=== PATIENT | female | born 1955 | race Caucasian/White ===

== ENCOUNTER 2017-05-25 06:19 | Observation (INO) | payer OTHER ==
[~2017-05-25] VITALS: Ht 175.3 cm; Wt 77.3 kg
[2017-05-25] MEDS ORDERED: SODIUM CHLORIDE 0.9% 1,000 ML IV SCH (06:46)
[2017-05-25 06:51] VITALS: BP 144/72
[2017-05-25] MEDS ORDERED: OMEG1CAP23 PO (06:58)
[2017-05-25] MEDS ORDERED: METO25TA35 PO (06:58)
[2017-05-25] MEDS ORDERED: CALC-112 PO (06:58)
[2017-05-25] MEDS ORDERED: ASCO10004 PO (06:58)
[2017-05-25] MEDS ORDERED: ASPI-496 PO (06:58)
[2017-05-25] MEDS ORDERED: LIDOCAINE 2%, 20ML ONE (07:32)
[2017-05-25] MEDS ORDERED: MIDAZOLAM 1 MG/ML, 5ML ONE (07:32)
[2017-05-25] MEDS ORDERED: ISOPROTERENOL 0.2MG/ML, 5ML ONE (07:32)
[2017-05-25] MEDS ORDERED: FENTANYL PF 100 MCG/2ML ONE (07:32)
[2017-05-25] MEDS ORDERED: ZOLPIDEM 5MG TABLET PO PRN (11:00)
[2017-05-25] MEDS ORDERED: HYDROcodone/APAP 5/325 TABLET PO PRN (11:00)
[2017-05-25] MEDS ORDERED: CEFAZOLIN PMX 1GM/50ML 50 ML IVPB SCH (16:00)
[2017-05-25] MEDS ORDERED: CALCIUM/VITAMIN D3 250-125 TABLET PO SCH (21:00)
[2017-05-25] MEDS ORDERED: METOPROLOL TARTRATE 25 MG TABLET PO SCH (21:00)
[2017-05-25] MEDS ORDERED: SODIUM CHLORIDE FLUSH 10ML SYR IVF SCH (21:00)
[2017-05-26] MEDS ORDERED: OMEGA-3/FISH OIL CAPSULE PO SCH (09:00)
[2017-05-26] MEDS ORDERED: CALCIUM/VITAMIN D3 250-125 TABLET PO SCH (09:00)
[2017-05-26] MEDS ORDERED: ASCORBIC ACID 500 MG TABLET PO SCH (09:00)
[2017-05-26] MEDS ORDERED: ASPIRIN 81 MG TABLET EC PO SCH (09:00)
== END 2017-05-25 14:20 | disposition home or self-care (01) ==
LOC: CACL 06:19 → ORIP 10:44
PROVIDERS: ADMIT Internal Medicine Cardiovascular Disease; ATTEND Internal Medicine Cardiovascular Disease
DX: I49.3 Ventricular premature depolarization (principal); I42.9 Cardiomyopathy, unspecified
CPT/HCPCS: 93623; C1894; C2630; G0378; J3490; J2250; J3010

== ENCOUNTER 2020-01-16 06:11 | Observation (INO) | payer MEDICARE, OTHER ==
[~2020-01-16] VITALS: Ht 175.3 cm; Wt 86.4 kg
[~2020-01-16 06:11] MED LIST: ASCO10004 PO; ASPI-496 PO; CALC-112 PO; METO25TA35 PO; OMEG1CAP23 PO
[2020-01-16] MEDS ORDERED: SODIUM CHLORIDE 0.9% 1,000 ML IV SCH (06:29)
[2020-01-16] MEDS ORDERED: MULT-658 PO (06:40)
[2020-01-16] MEDS ORDERED: MAGN400T36 PO (06:40)
[2020-01-16] MEDS ORDERED: FLEC100T PO (06:40)
[2020-01-16] MEDS ORDERED: GLUC-149 PO (06:40)
[2020-01-16 06:43] VITALS: BP 148/63
[2020-01-16 07:11] LABS: MEAN CORPUSCULAR HEMOGLOBIN 33.1 pg (27.0-34.8); MEAN CORPUSCULAR HGB CONC 33.4 g/dL (32.4-35.8); MEAN CORPUSCULAR VOLUME 99.2 fL (80-100); MEAN PLATELET VOLUME 8.7 fL (7.4-10.4); PLATELET COUNT 251 x10^3/uL (130-400); RED BLOOD COUNT 4.12 x10^6/uL (3.82-5.3); RED CELL DISTRIBUTION WIDTH 13.9 % (9.6-15.2)
[2020-01-16 07:12] LABS: ANION GAP 6 mmol/L (5-15); CHLORIDE 111 mmol/L (98-107); CREATININE 0.86 mg/dL (0.55-1.02)
[2020-01-16] MEDS ORDERED: FENTANYL PF 100 MCG/2ML ONE (07:50)
[2020-01-16] MEDS ORDERED: MIDAZOLAM 1 MG/ML, 2ML ONE (07:50)
[2020-01-16] MEDS ORDERED: ISOPROTERENOL 0.2MG/ML, 5ML ONE (07:50)
[2020-01-16] MEDS ORDERED: LIDOCAINE 1%, 20ML ONE ×2 (07:50→09:19)
[2020-01-16 07:58] LABS: MD YES
[2020-01-16 08:05] LABS: BANDS%(MANUAL) 4 % (0-7); BASOS#(MANUAL) 0.03 x10^3/uL (0-0.1); BASOS% (MANUAL) 1 % (0-1); MONOS#(MANUAL) 0.43 x10^3/uL (0.3-2.7); MONOS% (MANUAL) 17 % (2-9)
[2020-01-16 08:06] LABS: EOS#(MANUAL) 0.13 x10^3/uL (0.0-0.4); EOS% (MANUAL) 5 % (1-7); SEG#(MANUAL) 0.28 x10^3/uL (1.8-6.8); SEGS% (MANUAL) 11 % (42-75)
[2020-01-16 08:07] LABS: <PLATELET ESTIMATE> ADEQUATE; <PLT MORPHOLOGY> NORMAL PLT MORPH; <RBC MORPHOLOGY> NORMAL; LYMPH#(MANUAL) 1.55 x10^3/uL (1-3.4); LYMPHS% (MANUAL) 62 % (22-44)
[2020-01-16] MEDS ORDERED: HEPARIN 1,000 UNITS/ML, 10ML ONE ×2 (09:27→09:59)
[2020-01-16] MEDS ORDERED: ACETAMINOPHEN 325 MG TABLET PO PRN (12:00)
[2020-01-16] MEDS ORDERED: ZOLPIDEM 5MG TABLET PO PRN (12:00)
[2020-01-16 13:13] VITALS: BP 128/77
[2020-01-16] MEDS: CALCIUM/VITAMIN D3 250-125 TABLET PO SCH ×2 (13:26→20:10)
[2020-01-16] MEDS: CLOPIDOGREL 75 MG TABLET PO SCH (13:46)
[2020-01-16 19:03] VITALS: BP 122/70
[2020-01-16] MEDS: METOPROLOL TARTRATE 25 MG TAB PO SCH (20:10)
[2020-01-17 01:17] VITALS: BP 126/72
[2020-01-17 05:14] LABS: MEAN CORPUSCULAR HEMOGLOBIN 33.4 pg (27.0-34.8); MEAN CORPUSCULAR HGB CONC 34.1 g/dL (32.4-35.8); PLATELET COUNT 208 x10^3/uL (130-400); RED BLOOD COUNT 3.51 x10^6/uL (3.82-5.3); RED CELL DISTRIBUTION WIDTH 14.1 % (9.6-15.2)
[2020-01-17 05:44] LABS: MD YES
[2020-01-17 05:47] LABS: BASOS#(MANUAL) 0.03 x10^3/uL (0-0.1); BASOS% (MANUAL) 1 % (0-1); EOS#(MANUAL) 0.25 x10^3/uL (0.0-0.4); EOS% (MANUAL) 10 % (1-7); LYMPH#(MANUAL) 1.05 x10^3/uL (1-3.4); LYMPHS% (MANUAL) 42 % (22-44); MONOS#(MANUAL) 0.55 x10^3/uL (0.3-2.7); MONOS% (MANUAL) 22 % (2-9); SEG#(MANUAL) 0.63 x10^3/uL (1.8-6.8); SEGS% (MANUAL) 25 % (42-75)
[2020-01-17 05:48] LABS: <PLATELET ESTIMATE> ADEQUATE; <PLT MORPHOLOGY> NORMAL PLT MORPH; <RBC MORPHOLOGY> NORMAL
[2020-01-17 06:33] VITALS: BP 129/71
[2020-01-17] MEDS ORDERED: MULTIVITAMIN 1 TABLET PO SCH (09:00)
[2020-01-17] MEDS ORDERED: ASPIRIN 81 MG TABLET EC PO SCH (09:00)
[2020-01-17] MEDS ORDERED: ASCORBIC ACID 500 MG TABLET PO SCH (09:00)
[2020-01-17] MEDS ORDERED: MAGNESIUM OXIDE 400 MG TABLET PO SCH (09:00)
[2020-01-17] MEDS ORDERED: TEMPLATE NON-FORMULARY MED. (Glucosam/Chond/Hyalu/Cf Borate (Move Free Joint Health Tablet HOMEMEDPO SCH (09:00)
[2020-01-17] MEDS: CALCIUM/VITAMIN D3 250-125 TABLET PO SCH (09:20)
[2020-01-17] MEDS: CLOPIDOGREL 75 MG TABLET PO SCH (09:21)
[2020-01-17] MEDS: METOPROLOL TARTRATE 25 MG TAB PO SCH (09:21)
[2020-01-17] MEDS ORDERED: ACET325T26 PO (10:44)
[2020-01-17] MEDS ORDERED: CLOP75TA PO (10:44)
== END 2020-01-17 13:58 | disposition home or self-care (01) ==
LOC: CACL 06:11 → 5SO 10:57 → INTOOBSV 11:43 → 5SO 11:43 → CACL 12:01
PROVIDERS: ADMIT Internal Medicine Cardiovascular Disease; ATTEND Internal Medicine Cardiovascular Disease
DX: I49.3 Ventricular premature depolarization (principal); F10.10 Alcohol abuse, uncomplicated; Z79.899 Other long term (current) drug therapy
CPT/HCPCS: 36415; 71046; 80048; 85025; 85347; 93306; 93356; 93454; 93654; 99156; 99157; C1732; C1760; C1769; C1894; C2630; G0378; J1644; J2250; J3010; J3490

== ENCOUNTER 2020-02-01 09:41 | Outpatient (CLI) | payer MEDICARE, OTHER ==
[~2020-02-01 09:41] MED LIST changes: +ACET325T26 PO; +CLOP75TA PO; +FLEC100T PO; +GLUC-149 PO; +MAGN400T36 PO; +MULT-658 PO
== END 2020-02-01 23:59 | disposition home or self-care (01) ==
LOC: CVU 09:41
PROVIDERS: ATTEND Internal Medicine Cardiovascular Disease
DX: I08.1 Rheumatic disorders of both mitral and tricuspid valves (principal); I42.9 Cardiomyopathy, unspecified
CPT/HCPCS: 93306

== ENCOUNTER 2020-03-30 07:25 | Day surgery (SDC) | payer MEDICARE, OTHER ==
[~2020-03-30] VITALS: Ht 175.3 cm; Wt 82.5 kg
[2020-03-30] MEDS ORDERED: SODIUM CHLORIDE 0.9% 1,000 ML IV SCH (08:10)
[2020-03-30 08:12] VITALS: BP 154/60
[2020-03-30 08:28] LABS: MEAN CORPUSCULAR HEMOGLOBIN 32.5 pg (27.0-34.8); MEAN CORPUSCULAR HGB CONC 32.8 g/dL (32.4-35.8); MEAN CORPUSCULAR VOLUME 99.3 fL (80-100); MEAN PLATELET VOLUME 8.6 fL (7.4-10.4); PLATELET COUNT 277 x10^3/uL (130-400); RED BLOOD COUNT 4.58 x10^6/uL (3.82-5.3); RED CELL DISTRIBUTION WIDTH 13.2 % (9.6-15.2)
[2020-03-30 08:35] LABS: ANION GAP 6 mmol/L (5-15); CALCIUM 10.1 mg/dL (8.5-10.1); CHLORIDE 111 mmol/L (98-107)
[2020-03-30 08:53] LABS: MD YES
[2020-03-30 08:56] LABS: <PLATELET ESTIMATE> ADEQUATE; <PLT MORPHOLOGY> NORMAL PLT MORPH; <RBC MORPHOLOGY> NORMAL; BAND#(MANUAL) 0.06 x10^3/uL; BANDS%(MANUAL) 2 % (0-7); BASOS#(MANUAL) 0.06 x10^3/uL (0-0.1); BASOS% (MANUAL) 2 % (0-1); EOS#(MANUAL) 0.06 x10^3/uL (0.0-0.4); EOS% (MANUAL) 2 % (1-7); LYMPH#(MANUAL) 1.29 x10^3/uL (1-3.4); LYMPHS% (MANUAL) 46 % (22-44); MONOS#(MANUAL) 0.25 x10^3/uL (0.3-2.7); MONOS% (MANUAL) 9 % (2-9); REACTIVE LYMPHS # (MANUAL) 0.03 x10^3/uL (0-0); REACTIVE LYMPHS % (MANUAL) 1 % (0-0); SEG#(MANUAL) 1.06 x10^3/uL (1.8-6.8); SEGS% (MANUAL) 38 % (42-75)
[2020-03-30] MEDS ORDERED: HEPARIN 1,000 UNITS/ML, 10ML ONE (10:24)
[2020-03-30] MEDS ORDERED: BIVALIRUDIN 250 MG ONE (10:24)
[2020-03-30] MEDS ORDERED: FENTANYL PF 100 MCG/2ML ONE (10:24)
[2020-03-30] MEDS ORDERED: LIDOCAINE-MPF 1%, 5ML ONE (10:24)
[2020-03-30] MEDS ORDERED: MIDAZOLAM 1 MG/ML, 5ML ONE (10:24)
[2020-03-30] MEDS ORDERED: TICAGRELOR 90 MG TABLET ONE (10:24)
[2020-03-30] MEDS ORDERED: VERAPAMIL 2.5 MG/ML, 2ML ONE (10:24)
== END 2020-03-30 13:05 | disposition home or self-care (01) ==
LOC: CACL 07:25
PROVIDERS: ATTEND Internal Medicine Cardiovascular Disease
DX: I35.1 Nonrheumatic aortic (valve) insufficiency (principal); I51.7 Cardiomegaly; Z79.82 Long term (current) use of aspirin; Z79.899 Other long term (current) drug therapy; Z88.8 Allergy status to other drugs, medicaments and biological substances
CPT/HCPCS: 36415; 80048; 85025; 93458; C1769; C1894; J1644; J2250; J3010; Q9967; 99156; J0583

== ENCOUNTER 2020-04-13 10:31 | Outpatient (CLI) | payer MEDICARE, OTHER ==
[2020-04-17] MEDS ORDERED: CHOL10003 PO (13:53)
[2020-04-17] MEDS ORDERED: NAPR220C2 PO (13:53)
== END 2020-04-13 23:59 | disposition home or self-care (01) ==
LOC: STAR 10:31
PROVIDERS: ATTEND Anesthesiology
DX: Z01.818 Encounter for other preprocedural examination (principal); Z11.59 Encounter for screening for other viral diseases
CPT/HCPCS: 36415; 87635

== ENCOUNTER 2020-04-18 04:32 | Inpatient (IN) | payer MEDICARE, OTHER ==
[2020-04-17 14:22] LABS: MICROSCOPIC NOT IND
[2020-04-17 14:26] LABS: INTERNATIONAL NORMALIZED RATIO 0.99 (0.93-1.1); PROTHROMBIN TIME 10.2 Seconds (9.6-11.5)
[2020-04-17 14:27] LABS: ALANINE AMINOTRANSFERASE 26 U/L (12-78); ALBUMIN 4.4 g/dL (3.4-5.0); ANION GAP 6 mmol/L (5-15); CALCIUM 9.2 mg/dL (8.5-10.1); CHLORIDE 109 mmol/L (98-107); CREATININE 0.84 mg/dL (0.55-1.02)
[2020-04-17 14:29] LABS: ALKALINE PHOSPHATASE 75 U/L (45-117); BILIRUBIN,TOTAL 0.6 mg/dL (0.2-1.0); TOTAL PROTEIN 7.5 g/dL (6.4-8.2)
[2020-04-17 14:32] LABS: MEAN CORPUSCULAR HEMOGLOBIN 32.9 pg (27.0-34.8); MEAN CORPUSCULAR VOLUME 99.6 fL (80-100); MEAN PLATELET VOLUME 9.3 fL (7.4-10.4); PLATELET COUNT 242 x10^3/uL (130-400); RED BLOOD COUNT 4.27 x10^6/uL (3.82-5.3); RED CELL DISTRIBUTION WIDTH 13.4 % (9.6-15.2)
[2020-04-17 14:39] LABS: MD YES
[2020-04-17 15:30] LABS: BAND#(MANUAL) 0.12 x10^3/uL; BANDS%(MANUAL) 4 % (0-7); EOS#(MANUAL) 0.18 x10^3/uL (0.0-0.4); EOS% (MANUAL) 6 % (1-7); LYMPH#(MANUAL) 1.14 x10^3/uL (1-3.4); LYMPHS% (MANUAL) 38 % (22-44); MONOS#(MANUAL) 0.48 x10^3/uL (0.3-2.7); MONOS% (MANUAL) 16 % (2-9); MYELOCYTES# (MANUAL) 0.03 x10^3/uL (0-0); MYELOCYTES% (MANUAL) 1 % (0-0); REACTIVE LYMPHS # (MANUAL) 0.09 x10^3/uL (0-0); REACTIVE LYMPHS % (MANUAL) 3 % (0-0); SEG#(MANUAL) 0.96 x10^3/uL (1.8-6.8); SEGS% (MANUAL) 32 % (42-75)
[2020-04-17 15:32] LABS: <PLATELET ESTIMATE> ADEQUATE; <RBC MORPHOLOGY> NORMAL; LARGE PLATELETS 1+
[~2020-04-18] VITALS: Ht 175.3 cm; Wt 84.9 kg
[~2020-04-18 04:32] MED LIST changes: +CHOL10003 PO; +NAPR220C2 PO
[2020-04-18 04:48] VITALS: BP 147/72
[2020-04-18 04:50] VITALS: BP 152/74
[2020-04-18] MEDS ORDERED: INSULIN LISPRO 100 UNITS/ML, PEN SQ-INSULIN SCH (05:00)
[2020-04-18] MEDS ORDERED: DO NOT GIVE MC SCH (05:00)
[2020-04-18] MEDS ORDERED: CHLORHEXIDINE 15 ML UDC MM SCH (05:00)
[2020-04-18 06:39] VITALS: BP 138/69
[2020-04-18] MEDS ORDERED: FENTANYL PF 250 MCG/5ML ONE ×4 (07:03→07:04)
[2020-04-18] MEDS ORDERED: MIDAZOLAM 10MG/2 ML ONE (07:03)
[2020-04-18] MEDS ORDERED: MANNITOL PMX 20% 500 ML IVPB PRN (07:30)
[2020-04-18] MEDS ORDERED: ALBUMIN HUMAN 5% 500 ML IV PRN (07:30)
[2020-04-18] MEDS ORDERED: PHENYLEPHRINE 50 MG in SODIUM CHLORIDE 0.9% 245 ML IV PRN ×2 (07:30→08:35)
[2020-04-18] MEDS ORDERED: CEFUROXIME 1.5 GM in SODIUM CHLORIDE 0.9% 50 ML IVPB PRN (07:30)
[2020-04-18] MEDS ORDERED: POTASSIUM CHLORIDE 80 MEQ, SODIUM BICARBONATE 8.4% 10 MEQ, MAGNESIUM SULFATE 0.5 GM, LI... IV PRN (07:30)
[2020-04-18] MEDS ORDERED: EPINEPHRINE 5 MG in SODIUM CHLORIDE 0.9% 245 ML IV PRN ×2 (07:30→09:00)
[2020-04-18] MEDS ORDERED: DEXMEDETOMIDINE 200 MCG in SODIUM CHLORIDE 0.9% 48 ML IV PRN ×2 (07:30→08:35)
[2020-04-18] MEDS ORDERED: REGULAR INSULIN 100 UNITS in SODIUM CHLORIDE 0.9% 99 ML IV PRN ×2 (07:30→08:35)
[2020-04-18] MEDS ORDERED: VANCOMYCIN 1,300 MG in SODIUM CHLORIDE 0.9% 250 ML IV PRN (07:30)
[2020-04-18] MEDS ORDERED: DOBUTAMINE 250 MG in SODIUM CHLORIDE 0.9% 230 ML IV PRN (08:35)
[2020-04-18] MEDS ORDERED: VASOPRESSIN 20 UNIT in SODIUM CHLORIDE 0.9% 99 ML IV PRN (08:35)
[2020-04-18] MEDS ORDERED: NITROGLYCERIN/D5W PMX 250 ML IV PRN (08:35)
[2020-04-18] MEDS ORDERED: SODIUM CHLORIDE 0.9% 1,000 ML IV PRN (08:35)
[2020-04-18] MEDS ORDERED: FENTANYL PF 100 MCG/2ML IVPush PRN (09:00)
[2020-04-18] MEDS ORDERED: GLUCAGON 1 MG IM PRN (09:00)
[2020-04-18] MEDS ORDERED: SODIUM BICARB 8.4%, 50ML SYRINGE IV PRN (09:00)
[2020-04-18] MEDS ORDERED: MIDAZOLAM 1 MG/ML, 5ML IVPush PRN (09:00)
[2020-04-18] MEDS: DOCUSATE 100 MG CAPSULE PO SCH ×2 (09:00→21:16)
[2020-04-18] MEDS ORDERED: DEXTROSE 50%, 50ML SYRINGE IVPush PRN (09:00)
[2020-04-18] MEDS: SODIUM CHLORIDE FLUSH 10ML SYR IVF SCH ×4 (09:00→21:16)
[2020-04-18] MEDS ORDERED: BISACODYL 5 MG EC TABLET PO PRN (09:00)
[2020-04-18] MEDS ORDERED: DEXTROSE 4 GM TAB.CHEW PO PRN (09:00)
[2020-04-18] MEDS ORDERED: ACETAMINOPHEN 325 MG TABLET PO PRN (09:00)
[2020-04-18] MEDS ORDERED: MUPIROCIN OINT 2%, 22GM TP SCH (09:00)
[2020-04-18] MEDS ORDERED: INSULIN REGULAR 100 UNITS/ML, 3ML VIAL IVPush PRN (09:00)
[2020-04-18] MEDS ORDERED: ACETAMINOPHEN 650 MG SUPP PR PRN (09:00)
[2020-04-18] MEDS ORDERED: BISACODYL 10 MG SUPP PR PRN (09:00)
[2020-04-18] MEDS ORDERED: ROCURONIUM 10MG/ML,5ML ONE (09:24)
[2020-04-18] MEDS ORDERED: PROTAMINE SULFATE 10 MG/ML, 25ML ONE (09:24)
[2020-04-18] MEDS ORDERED: AMINOCAPROIC ACID 250 MG/ML, 20ML ONE ×2 (09:24)
[2020-04-18] MEDS ORDERED: PROPOFOL 10 MG/ML, 20ML ONE (09:24)
[2020-04-18] MEDS ORDERED: PROTAMINE SULFATE 10 MG/ML, 5ML ONE (09:41)
[2020-04-18] MEDS: KSCALE TO 4.5 IV SCH ×3 (10:00→23:30)
[2020-04-18] MEDS: INSULIN LISPRO 100 UNITS/ML, PEN SQ-INSULIN SCH ×3 (11:00→21:00)
[2020-04-18] MEDS ORDERED: HEPARIN 1,000 UNITS/ML, 30ML ONE ×2 (11:29)
[2020-04-18] MEDS ORDERED: LIDOCAINE-MPF 2% ,5ML ONE (11:30)
[2020-04-18] MEDS ORDERED: SODIUM BICARBONATE 1 MEQ/ML, 50ML VIAL ONE (11:30)
[2020-04-18] MEDS ORDERED: methylPREDNISolone SOD SUCC 125 MG/2 ML ONE (11:31)
[2020-04-18 11:36] LABS: GLUCOSE BY BLOOD GAS ANALYZER 142 mg/dL (70-110); HEMOGLOBIN BY BLOOD GAS ANALYZ 11.1 g/dL (14.0-18.0)
[2020-04-18 11:48] LABS: INTERNATIONAL NORMALIZED RATIO 1.17 (0.93-1.1); PROTHROMBIN TIME 12.1 Seconds (9.6-11.5)
[2020-04-18] MEDS: LACTATED RINGERS 1,000 ML IV PRN ×2 (12:48→15:17)
[2020-04-18] MEDS: MAGNESIUM SULFATE 1 GM in SODIUM CHLORIDE 0.9% 100 ML IVPB SCH (13:07)
[2020-04-18] MEDS: OXYcodone IR 5MG TABLET PO PRN ×3 (14:58→22:01)
[2020-04-18] MEDS ORDERED: LIDODERM 5% PATCH TD ONE (15:55)
[2020-04-18] MEDS: LIDODERM 5% PATCH TD SCH (15:58)
[2020-04-18] MEDS: CEFUROXIME 1.5 GM in SODIUM CHLORIDE 0.9% 50 ML IVPB SCH (18:02)
[2020-04-18] MEDS ORDERED: POTASSIUM CHLORIDE 30 MEQ in SODIUM CHLORIDE 0.9% 100 ML IV ONE (18:30)
[2020-04-18] MEDS ORDERED: KETOROLAC 30 MG/1 ML ONE (18:52)
[2020-04-18] MEDS ORDERED: KETOROLAC 30 MG/1 ML IVPush ONE (19:00)
[2020-04-18] MEDS: VANCOMYCIN 1,200 MG in SODIUM CHLORIDE 0.9% 250 ML IVPB SCH (19:01)
[2020-04-18] MEDS: MUPIROCIN OINT 2%, 22GM NAS SCH (21:15)
[2020-04-19] MEDS: OXYcodone IR 5MG TABLET PO PRN ×3 (01:49→11:15)
[2020-04-19] MEDS: LIDODERM REMOVE PATCH NOTE XX SCH (04:00)
[2020-04-19] MEDS: KSCALE TO 4.5 IV SCH (05:30)
[2020-04-19 05:42] LABS: BASOPHILS % (AUTO) 0 % (0-1); EOSINOPHILS % (AUTO) 0 % (1-7); INTERNATIONAL NORMALIZED RATIO 1.07 (0.93-1.1); LYMPHOCYTES # (AUTO) 0.47 x10^3/uL (1-3.4); LYMPHOCYTES % (AUTO) 8 % (22-44); MD NO; MEAN CORPUSCULAR HEMOGLOBIN 32.3 pg (27.0-34.8); MEAN CORPUSCULAR HGB CONC 32.4 g/dL (32.4-35.8); MEAN CORPUSCULAR VOLUME 99.8 fL (80-100); MEAN PLATELET VOLUME 9.5 fL (7.4-10.4); MONOCYTES # (AUTO) 1.16 x10^3/uL (0.2-0.8); MONOCYTES % (AUTO) 20 % (2-9); NEUTROPHILS # (AUTO) 4.25 x10^3/uL (1.8-6.8); NEUTROPHILS % (AUTO) 72 % (42-75); PLATELET COUNT 132 x10^3/uL (130-400); RED BLOOD COUNT 3.51 x10^6/uL (3.82-5.3); RED CELL DISTRIBUTION WIDTH 13.7 % (9.6-15.2)
[2020-04-19 05:46] LABS: ALBUMIN 2.8 g/dL (3.4-5.0); ANION GAP 5 mmol/L (5-15); CALCIUM 7.3 mg/dL (8.5-10.1); CHLORIDE 117 mmol/L (98-107)
[2020-04-19 05:47] LABS: CREATININE 0.59 mg/dL (0.55-1.02)
[2020-04-19] MEDS: INSULIN LISPRO 100 UNITS/ML, PEN SQ-INSULIN SCH ×4 (07:00→21:00)
[2020-04-19] MEDS: CEFUROXIME 1.5 GM in SODIUM CHLORIDE 0.9% 50 ML IVPB SCH (07:11)
[2020-04-19] MEDS: VANCOMYCIN 1,200 MG in SODIUM CHLORIDE 0.9% 250 ML IVPB SCH (07:54)
[2020-04-19] MEDS: SODIUM CHLORIDE FLUSH 10ML SYR IVF SCH ×4 (07:54→21:55)
[2020-04-19] MEDS: MUPIROCIN OINT 2%, 22GM NAS SCH ×2 (07:58→21:56)
[2020-04-19] MEDS: MAGNESIUM SULFATE 1 GM in SODIUM CHLORIDE 0.9% 100 ML IVPB SCH (07:58)
[2020-04-19] MEDS: DOCUSATE 100 MG CAPSULE PO SCH ×2 (07:58→21:56)
[2020-04-19] MEDS: CHLORHEXIDINE 15 ML UDC MM SCH ×2 (07:58→21:55)
[2020-04-19] MEDS ORDERED: ASPIRIN 81 MG TABLET EC ONE (07:59)
[2020-04-19] MEDS: ASPIRIN 81 MG TABLET EC PO SCH (08:00)
[2020-04-19] MEDS: FUROSEMIDE 20 MG/2 ML IV SCH (10:02)
[2020-04-19] MEDS: POTASSIUM CHLORIDE 20 MEQ TAB.ER.PRT PO SCH (10:02)
[2020-04-19] MEDS: PROCHLORPERAZINE 5 MG/ML, 2ML IVPush PRN ×2 (12:37→17:14)
[2020-04-19] MEDS: LIDODERM 5% PATCH TD SCH (16:29)
[2020-04-19] MEDS: HYDROcodone/APAP 10/325 MG TABLET PO PRN (18:08)
[2020-04-19 21:50] VITALS: BP 117/72
[2020-04-19] MEDS: ONDANSETRON 2MG/ML, 2ML IVPush PRN (22:25)
[2020-04-20 02:58] VITALS: BP 125/77
[2020-04-20] MEDS: LIDODERM REMOVE PATCH NOTE XX SCH (04:00)
[2020-04-20] MEDS: HYDROcodone/APAP 10/325 MG TABLET PO PRN ×3 (05:21→19:19)
[2020-04-20 05:28] LABS: ANION GAP 4 mmol/L (5-15); CALCIUM 8.1 mg/dL (8.5-10.1); CHLORIDE 108 mmol/L (98-107); CREATININE 0.59 mg/dL (0.55-1.02)
[2020-04-20 05:34] LABS: INTERNATIONAL NORMALIZED RATIO 1.01 (0.93-1.1); PROTHROMBIN TIME 10.4 Seconds (9.6-11.5)
[2020-04-20 06:29] LABS: MD YES; MEAN CORPUSCULAR HEMOGLOBIN 33.5 pg (27.0-34.8); MEAN CORPUSCULAR HGB CONC 33.7 g/dL (32.4-35.8); MEAN CORPUSCULAR VOLUME 99.3 fL (80-100); MEAN PLATELET VOLUME 10.2 fL (7.4-10.4); PLATELET COUNT 114 x10^3/uL (130-400); RED BLOOD COUNT 3.14 x10^6/uL (3.82-5.3); RED CELL DISTRIBUTION WIDTH 13.8 % (9.6-15.2)
[2020-04-20 06:31] LABS: BAND#(MANUAL) 0.08 x10^3/uL; BANDS%(MANUAL) 3 % (0-7); LYMPHS% (MANUAL) 25 % (22-44); MONOS#(MANUAL) 0.92 x10^3/uL (0.3-2.7); MONOS% (MANUAL) 33 % (2-9); SEG#(MANUAL) 1.09 x10^3/uL (1.8-6.8); SEGS% (MANUAL) 39 % (42-75)
[2020-04-20 06:32] LABS: <PLATELET ESTIMATE> DECREASED; <PLT MORPHOLOGY> NORMAL PLT MORPH; <RBC MORPHOLOGY> NORMAL
[2020-04-20 06:56] VITALS: BP 119/74
[2020-04-20] MEDS: INSULIN LISPRO 100 UNITS/ML, PEN SQ-INSULIN SCH ×2 (07:00→11:00)
[2020-04-20] MEDS: DOCUSATE 100 MG CAPSULE PO SCH ×2 (08:30→21:22)
[2020-04-20] MEDS: POTASSIUM CHLORIDE 20 MEQ TAB.ER.PRT PO SCH ×2 (08:31→21:22)
[2020-04-20] MEDS: MUPIROCIN OINT 2%, 22GM NAS SCH ×2 (08:31→21:22)
[2020-04-20] MEDS: SODIUM CHLORIDE FLUSH 10ML SYR IVF SCH ×4 (08:31→21:21)
[2020-04-20] MEDS: CHLORHEXIDINE 15 ML UDC MM SCH ×2 (08:31→21:22)
[2020-04-20] MEDS: FUROSEMIDE 20 MG/2 ML IV SCH (08:31)
[2020-04-20] MEDS: ASPIRIN 81 MG TABLET EC PO SCH (08:31)
[2020-04-20] MEDS ORDERED: FUROSEMIDE 20 MG/2 ML IV ONE (10:00)
[2020-04-20] MEDS: HYDROcodone/APAP 5/325 TABLET PO PRN (10:27)
[2020-04-20] MEDS: ONDANSETRON 2MG/ML, 2ML IVPush PRN (10:54)
[2020-04-20] MEDS: MAGNESIUM SULFATE 1 GM in SODIUM CHLORIDE 0.9% 100 ML IVPB SCH (11:15)
[2020-04-20 12:43] VITALS: BP 107/72
[2020-04-20] MEDS: LIDODERM 5% PATCH TD SCH (15:28)
[2020-04-20] MEDS ORDERED: FILTER 0.22 MICRON FOR AMIODARONE IV PRN (16:30)
[2020-04-20] MEDS: AMIODARONE 450 MG in DEXTROSE 5% 241 ML IV PRN (16:52)
[2020-04-20] MEDS ORDERED: AMIODARONE 150 MG in DEXTROSE 5% 100 ML IV ONE (17:00)
[2020-04-20 19:54] VITALS: BP 101/62
[2020-04-21 00:21] VITALS: BP 117/76
[2020-04-21] MEDS: AMIODARONE 450 MG in DEXTROSE 5% 241 ML IV PRN (01:49)
[2020-04-21] MEDS: HYDROcodone/APAP 10/325 MG TABLET PO PRN ×4 (03:36→21:12)
[2020-04-21] MEDS: ONDANSETRON 2MG/ML, 2ML IVPush PRN (03:59)
[2020-04-21] MEDS: LIDODERM REMOVE PATCH NOTE XX SCH (03:59)
[2020-04-21 04:34] LABS: ANION GAP 6 mmol/L (5-15); CALCIUM 8.4 mg/dL (8.5-10.1); CHLORIDE 105 mmol/L (98-107); CREATININE 0.56 mg/dL (0.55-1.02)
[2020-04-21 04:42] LABS: MEAN CORPUSCULAR HEMOGLOBIN 32.7 pg (27.0-34.8); MEAN CORPUSCULAR HGB CONC 32.9 g/dL (32.4-35.8); MEAN CORPUSCULAR VOLUME 99.6 fL (80-100); PLATELET COUNT 153 x10^3/uL (130-400); RED BLOOD COUNT 3.27 x10^6/uL (3.82-5.3); RED CELL DISTRIBUTION WIDTH 13.4 % (9.6-15.2)
[2020-04-21 05:45] LABS: MD YES
[2020-04-21 06:11] LABS: <PLATELET ESTIMATE> ADEQUATE; <PLT MORPHOLOGY> NORMAL PLT MORPH; <RBC MORPHOLOGY> NORMAL; BAND#(MANUAL) 0.06 x10^3/uL; BANDS%(MANUAL) 3 % (0-7); EOS#(MANUAL) 0.08 x10^3/uL (0.0-0.4); EOS% (MANUAL) 4 % (1-7); LYMPH#(MANUAL) 0.72 x10^3/uL (1-3.4); LYMPHS% (MANUAL) 36 % (22-44); MONOS% (MANUAL) 25 % (2-9); SEG#(MANUAL) 0.64 x10^3/uL (1.8-6.8); SEGS% (MANUAL) 32 % (42-75)
[2020-04-21 07:50] VITALS: BP 124/79
[2020-04-21] MEDS: AMIODARONE 200 MG TABLET PO SCH ×2 (08:29→21:11)
[2020-04-21] MEDS: ASPIRIN 81 MG TABLET EC PO SCH (08:30)
[2020-04-21] MEDS: SODIUM CHLORIDE FLUSH 10ML SYR IVF SCH ×2 (08:30→21:00)
[2020-04-21] MEDS: DOCUSATE 100 MG CAPSULE PO SCH ×2 (08:30→21:11)
[2020-04-21] MEDS: POTASSIUM CHLORIDE 20 MEQ TAB.ER.PRT PO SCH ×2 (08:30→21:12)
[2020-04-21] MEDS: FUROSEMIDE 40 MG/4 ML IV SCH (08:30)
[2020-04-21] MEDS: MUPIROCIN OINT 2%, 22GM NAS SCH ×2 (08:31→21:12)
[2020-04-21 12:10] VITALS: BP 117/77
[2020-04-21] MEDS: LIDODERM 5% PATCH TD SCH (15:47)
[2020-04-21 18:12] VITALS: BP 113/72
[2020-04-22 01:48] VITALS: BP 127/76
[2020-04-22] MEDS: LIDODERM REMOVE PATCH NOTE XX SCH (04:00)
[2020-04-22] MEDS: HYDROcodone/APAP 5/325 TABLET PO PRN (04:28)
[2020-04-22 05:07] LABS: CALCIUM 8.1 mg/dL (8.5-10.1); CREATININE 0.49 mg/dL (0.55-1.02)
[2020-04-22 05:14] LABS: ANION GAP 5 mmol/L (5-15); CHLORIDE 106 mmol/L (98-107)
[2020-04-22 05:15] LABS: MEAN CORPUSCULAR HEMOGLOBIN 32.9 pg (27.0-34.8); MEAN CORPUSCULAR HGB CONC 33.4 g/dL (32.4-35.8); MEAN CORPUSCULAR VOLUME 98.5 fL (80-100); MEAN PLATELET VOLUME 9.6 fL (7.4-10.4); PLATELET COUNT 164 x10^3/uL (130-400); RED BLOOD COUNT 2.99 x10^6/uL (3.82-5.3); RED CELL DISTRIBUTION WIDTH 13.7 % (9.6-15.2)
[2020-04-22 06:08] LABS: MD YES
[2020-04-22 06:13] LABS: <PLATELET ESTIMATE> ADEQUATE; <PLT MORPHOLOGY> NORMAL PLT MORPH; <RBC MORPHOLOGY> NORMAL; BAND#(MANUAL) 0.02 x10^3/uL; BANDS%(MANUAL) 1 % (0-7); BASOS#(MANUAL) 0.02 x10^3/uL (0-0.1); BASOS% (MANUAL) 1 % (0-1); EOS#(MANUAL) 0.13 x10^3/uL (0.0-0.4); EOS% (MANUAL) 7 % (1-7); LYMPH#(MANUAL) 0.72 x10^3/uL (1-3.4); LYMPHS% (MANUAL) 40 % (22-44); MONOS#(MANUAL) 0.29 x10^3/uL (0.3-2.7); MONOS% (MANUAL) 16 % (2-9); SEG#(MANUAL) 0.63 x10^3/uL (1.8-6.8); SEGS% (MANUAL) 35 % (42-75)
[2020-04-22 07:29] VITALS: BP 131/77
[2020-04-22] MEDS: ASPIRIN 81 MG TABLET EC PO SCH (09:07)
[2020-04-22] MEDS: AMIODARONE 200 MG TABLET PO SCH ×2 (09:07→20:32)
[2020-04-22] MEDS: DOCUSATE 100 MG CAPSULE PO SCH ×2 (09:07→20:32)
[2020-04-22] MEDS: FUROSEMIDE 40 MG/4 ML IV SCH (09:07)
[2020-04-22] MEDS: HYDROcodone/APAP 10/325 MG TABLET PO PRN ×2 (09:08→18:04)
[2020-04-22] MEDS: POTASSIUM CHLORIDE 20 MEQ TAB.ER.PRT PO SCH ×2 (09:08→20:32)
[2020-04-22] MEDS: MUPIROCIN OINT 2%, 22GM NAS SCH ×2 (09:09→20:32)
[2020-04-22] MEDS: SODIUM CHLORIDE FLUSH 10ML SYR IVF SCH ×2 (09:09→20:32)
[2020-04-22 14:00] VITALS: BP 123/79
[2020-04-22 14:36] VITALS: BP 124/80
[2020-04-22] MEDS: LIDODERM 5% PATCH TD SCH (18:01)
[2020-04-22 20:22] VITALS: BP 144/81
[2020-04-23] MEDS: HYDROcodone/APAP 10/325 MG TABLET PO PRN (00:20)
[2020-04-23 01:18] VITALS: BP 149/81
[2020-04-23] MEDS: LIDODERM REMOVE PATCH NOTE XX SCH (03:52)
[2020-04-23 05:27] LABS: CHLORIDE 105 mmol/L (98-107)
[2020-04-23 05:32] LABS: MEAN CORPUSCULAR HEMOGLOBIN 32.7 pg (27.0-34.8); MEAN CORPUSCULAR HGB CONC 33.1 g/dL (32.4-35.8); MEAN CORPUSCULAR VOLUME 98.8 fL (80-100); MEAN PLATELET VOLUME 8.4 fL (7.4-10.4); PLATELET COUNT 255 x10^3/uL (130-400); RED BLOOD COUNT 3.32 x10^6/uL (3.82-5.3); RED CELL DISTRIBUTION WIDTH 13.2 % (9.6-15.2)
[2020-04-23 05:34] LABS: ANION GAP 6 mmol/L (5-15); CALCIUM 8.7 mg/dL (8.5-10.1); CREATININE 0.56 mg/dL (0.55-1.02)
[2020-04-23 05:59] LABS: MD YES
[2020-04-23 06:01] LABS: EOS#(MANUAL) 0.14 x10^3/uL (0.0-0.4); EOS% (MANUAL) 7 % (1-7); LYMPH#(MANUAL) 0.88 x10^3/uL (1-3.4); LYMPHS% (MANUAL) 44 % (22-44); MONOS% (MANUAL) 35 % (2-9); SEG#(MANUAL) 0.28 x10^3/uL (1.8-6.8); SEGS% (MANUAL) 14 % (42-75)
[2020-04-23 06:02] LABS: <PLATELET ESTIMATE> ADEQUATE; <PLT MORPHOLOGY> NORMAL PLT MORPH; <RBC MORPHOLOGY> NORMAL
[2020-04-23 07:33] VITALS: BP 133/83
[2020-04-23] MEDS: HYDROcodone/APAP 5/325 TABLET PO PRN ×2 (07:44→13:09)
[2020-04-23] MEDS: FUROSEMIDE 40 MG/4 ML IV SCH (09:34)
[2020-04-23] MEDS: DOCUSATE 100 MG CAPSULE PO SCH (09:34)
[2020-04-23] MEDS: POTASSIUM CHLORIDE 20 MEQ TAB.ER.PRT PO SCH (09:34)
[2020-04-23] MEDS: ASPIRIN 81 MG TABLET EC PO SCH (09:34)
[2020-04-23] MEDS: AMIODARONE 200 MG TABLET PO SCH (09:35)
[2020-04-23] MEDS: MUPIROCIN OINT 2%, 22GM NAS SCH (09:35)
[2020-04-23] MEDS: SODIUM CHLORIDE FLUSH 10ML SYR IVF SCH (09:39)
[2020-04-23] MEDS ORDERED: FURO20TA3 PO (11:03)
[2020-04-23] MEDS ORDERED: HYDR-3237 PO (11:03)
[2020-04-23] MEDS ORDERED: POTA20TA6 PO (11:03)
[2020-04-23 12:38] VITALS: BP 128/81
== END 2020-04-23 15:08 | disposition home or self-care (01) | DRG 220 ==
LOC: 5SO 04:32 → CSU 10:25 → 5SO 04-19 18:03 → DCLOUNGE 04-23 14:58
PROVIDERS: ADMIT Thoracic Surgery (Cardiothoracic Vascular Surgery); ATTEND Thoracic Surgery (Cardiothoracic Vascular Surgery)
PROC: 5A1221Z Performance of Cardiac Output, Continuous (ICD-10-PCS; 2020-04-18)
PROC: 03HY32Z Insertion of Monitoring Device into Upper Artery, Percutaneous Approach (ICD-10-PCS; 2020-04-18)
PROC: 4A133B3 Monitoring of Arterial Pressure, Pulmonary, Percutaneous Approach (ICD-10-PCS; 2020-04-18)
PROC: 02HP32Z Insertion of Monitoring Device into Pulmonary Trunk, Percutaneous Approach (ICD-10-PCS; 2020-04-18)
PROC: B24BZZ4 Ultrasonography of Heart with Aorta, Transesophageal (ICD-10-PCS; 2020-04-18)
PROC: 02RF0JZ Replacement of Aortic Valve with Synthetic Substitute, Open Approach (ICD-10-PCS; principal; 2020-04-18 08:00)
DX: I35.1 Nonrheumatic aortic (valve) insufficiency (principal); J93.9 Pneumothorax, unspecified; I49.3 Ventricular premature depolarization; D72.819 Decreased white blood cell count, unspecified; I48.91 Unspecified atrial fibrillation; Z79.899 Other long term (current) drug therapy
CPT/HCPCS: 36415; 36600; 71045; 71046; 80048; 80053; 81003; 82040; 82330; 82800; 82803; 82810; 82947; 82962; 83036; 83735; 84132; 84295; 85014; 85018; 85025; 85049; 85347; 85610; 85730; 86850; 86900; 86923; 87081; 88305; 93005; 93312; 93321; 93325; 93880; 94002; C1768; G0378; J0171; J0697; J1644; J1815; J1885; J1940; J2250; J2405; J2704; J2720; J3010; J3370; J3475; J3480; J7060; P9045; C1751; C1760; J0282; J0780; J2370; J2930; J7050; J7120